=== PATIENT | male | born 1960 | race Caucasian/White ===

== ENCOUNTER → 2024-01-29 14:41 | Outpatient (REF) | payer OTHER, SELFPAY | LOC: RAD 14:41 | PROVIDERS: ATTENDING PHYSICIAN Family Medicine | DX: R74.8 Abnormal levels of other serum enzymes (principal) | CPT/HCPCS: 76700 ==

== ENCOUNTER 2024-09-25 15:51 | Emergency (ER) | payer BC, SELFPAY ==
[2024-09-25 15:56] VITALS: BP 141/84
[2024-09-25] MEDS: LET TOPICAL ANESTHETIC GEL 3 ML TOPICAL (17:13)
--- NOTE | 2024-09-25 18:15 | ED.GENMED ---
History of Present Illness
General
Chief Complaint: Skin Surface Trauma
Time Seen by Provider: 09/25/24 16:34
History of Present Illness
History of Present Illness:
64-year-old male presents to the emergency department for evaluation of a nasal laceration sustained when he excellently struck himself with a razor blade in the face. There is a laceration to the nasal septum approximately 1-1/2 cm depth with a
minor laceration to the right nasal paolo. No dental injury
Review of Systems
Review of Systems
Allergies reviewed?: Yes
All Other Systems: ROS reviewed and negative except as documented in HPI and ROS
Phy Exam
Physical Exam
Physical Exam:
GEN: Well appearing, NAD, WDWN
HEENT: Oral mucosa moist, no scleral icterus. 1 cm curvilinear laceration to the nasal septum extending inferiorly approximately 1.5 cm in depth, small subcentimeter laceration to the right nasal paolo
Cardiac: Regular rate
Lung: No respiratory distress, no tachypnea
MSK: No gross deformity or injuries
Skin: Good color, no pallor or jaundice, no rashes
Neuro: AO x3, moves all extremities freely
Psych: Calm, cooperative
Course
Orders/Labs/Results
Orders:
Orders
09/25/24 16:45
Lidocaine/Epinephrine/Tetracai [Let Topical Anesthetic Gel] 3 ml TOPICAL NOW STA
Vital Signs
Initial and Last Documented VS:
Initial Vital Signs
Temp Pulse Resp BP Pulse Ox
97.8 F 65 18 141/84 97
09/25/24 15:56 09/25/24 15:56 09/25/24 15:56 09/25/24 15:56 09/25/24 15:56
Last Documented Vital Signs
Temp Pulse Resp BP Pulse Ox
97.8 F 65 18 141/84 97
09/25/24 15:56 09/25/24 15:56 09/25/24 15:56 09/25/24 15:56 09/25/24 18:18
Procedures
Laceration Closure
nose:
Status of Wound: clean
Size of Wound in cm: 1.5
Description of Wound Edges: sharp
Preparation: cleaned with saline
Anesthesia: 1% Lidocaine and Digital-Regional (Bilateral infra orbital blocks)
Revision/Debridement: routine- no revision
Type of Closure: layered closure
Skin Closure Material: other (6-0 gut)
Number of sutures: 9
MDM/Problems Addressed
MDM/Problems Addressed:
Wound closed at the bedside, tetanus status previously up-to-date. Discussed wound care and follow-up parameters
*Pulse Oximetry
SaO2: 97
Oxygen Mode of Delivery: Room air
Patient hypoxic: no
*Critical Care Note
Total Time (30-74mins, 75-104mins- exclusive of procedures): Not Applicable
ED Attending Note
-
Portions of this chart may have been created with voice recognition software.� Occasional wrong word or��sound alike� substitutions may have occurred due to the inherent limitations of voice recognition software.
Discharge Plan
Departure
Patient Disposition: Home (Routine Discharge)
Date of Disposition: 09/25/24
Time of Disposition: 18:15
Patient with high blood pressure during this ER visit?: No
Discharge Problem:
Laceration of nose
Instructions: Laceration Repair With Stitches (DC)
Referrals:
Connor Chavis, DO [Family Provider, Family Practice]
Activity Restrictions/Additional Instructions:
Twice daily Neosporin (bacitracin)
Do not wash area today, you may begin showering and washing the wound tomorrow
Suture removal in 7-10 days
Follow up in ER on 10/04 between 11-8am and do not register for me to assess the wound and remove the sutures
Interventions
Interventions:
*Risk Screen - Suicide Last Done: 09/25/24 15:56
*General Assessment Last Done: 09/25/24 15:58
*Neglect/Abuse Screening Last Done: 09/25/24 16:32
*ED- Fall Risk Assessment Last Done: 09/25/24 16:31
*ED COVID-19 Vaccine History Last Done: 09/25/24 16:31
*Nursing Disposition Last Done: 09/25/24 18:25
ED-Skin Assessment Last Done: 09/25/24 16:33
Discharge Date and Time
Discharge Date/Time: 09/25/24 18:26
Print Language: [email or web address]
== END 2024-09-25 18:26 | disposition home or self-care (01) ==
LOC: EMR 15:51
PROVIDERS: EMERGENCY PHYSICIAN Emergency Medicine; FAMILY PHYSICIAN Family Medicine
DX: S01.21XA Laceration without foreign body of nose, initial encounter (principal); W27.8XXA Contact with other nonpowered hand tool, initial encounter
CPT/HCPCS: 12051; 99283